=== PATIENT | male | born 1950 | race Caucasian/White ===

== ENCOUNTER 2021-01-10 23:07 | Inpatient (IN) ==
[2021-01-11 00:10] LABS: Basophils # 0.1 10*3/uL (0.0-0.2); Basophils % 0.5 % (0.0-0.8); Eosinophils # 0.2 10*3/uL (0.0-0.87); Hematocrit 42.2 VOL% (42.0-52.0); Hemoglobin 13.2 GM/DL (14.0-18.0); Immature Granulocytes % 0.5 %; Immature Granulocytes Absolute 0.05 #; Lymphocytes # 0.5 10*3/uL (1.4-4.0); Lymphocytes % 4.9 % (21.2-54.2); Mean Corpuscular HGB Conc 31.3 GM/DL (32-36); Mean Corpuscular Volume 89.4 FL (87-102); Mean Platelet Volume 10.8 FL (9.6-12.0); Monocytes % 7.3 % (1.7-12.7); Neutrophils % 84.8 % (38.7-73.9); Platelet Count 111 T/CUMM (130-400); Red Blood Count 4.72 MC/CUMM (3.8-5.5); Red Cell Distribution Width 15.1 % (9.3-17.3); White Blood Count 9.1 T/CUMM (4-12)
[2021-01-11 00:17] LABS: Albumin 2.9 G/DL (3.4-5.0); Bilirubin,Total 1.2 MG/DL (0.2-1.0); Calcium 8.2 MG/DL (8.5-10.1); Osmolality,Calculated 281.4 MOS/KG (273-304); Potassium 3.6 MMOL/L (3.5-5.1)
[2021-01-11] MEDS ORDERED: cefTRIAXone 1,000 MG in SODIUM CHLORIDE 0.9% 100 ML IV STA (00:17)
[2021-01-11] MEDS ORDERED: ONDANSETRON 4 MG/2 ML VIAL IV STA (00:17)
[2021-01-11] MEDS ORDERED: FUROSEMIDE 100 MG/10 ML VIAL IV STA (00:17)
[2021-01-11] MEDS ORDERED: methylPREDNISolone SOD SUC 125 MG/2 ML VIAL IV STA (00:17)
[2021-01-11] MEDS ORDERED: ALBUTEROL NEB SOLN 5 MG/ML 20 ML/BOTTLE CONT NEB SCH (00:30)
[2021-01-11 00:52] LABS: INR 1.1; PT Patient Result 11.9 SECS (10.5-12.0)
[2021-01-11 01:29] LABS: Bacteria,Urine Many /HPF (Few); Bilirubin,Urine Negative (Negative); Blood, Urine Negative (Negative); Glucose,Urine (UA) Negative (Negative); Ketones,Urine Negative (Negative); Mucus,Urine Many /LPF (Occasional); Nitrite,Urine Positive (Negative); Protein,Urine 30 MG/DL; RBC,Urine 31 /HPF (0-4); Renal Epithelial Cells,Urine Occasional /HPF (<1); Urine Appearance Slightly Hazy (Clear); Urine Color Amber (Yellow)
[2021-01-11] MEDS ORDERED: ENOXAPARIN 100 MG/ML SYRINGE SUBCUT STA (01:30)
[2021-01-11] MEDS ORDERED: BICILLIN LA 1,200,000 UNIT/2 ML SYRINGE IM STA (01:40)
[2021-01-11] MEDS ORDERED: LEVOFLOXACIN INJ 750 MG/150 ML PREMIX IV STA (01:41)
[2021-01-11] MEDS ORDERED: ENOXAPARIN 120 MG/0.8 ML SYRINGE SUBCUT ONE (02:06)
[2021-01-11] MEDS ORDERED: LACTULOSE 20 GM/30 ML UDCUP PO PRN (02:39)
[2021-01-11] MEDS ORDERED: ONDANSETRON 4 MG/2 ML VIAL IV PRN (02:39)
[2021-01-11] MEDS ORDERED: ACETAMINOPHEN 325 MG TABLET PO PRN (02:39)
[2021-01-11 04:28] LABS: Basophils % 0.2 % (0.0-0.8); Eosinophils % 0.3 % (0.00-10.9); Hematocrit 44.1 VOL% (42.0-52.0); Hemoglobin 14.2 GM/DL (14.0-18.0); Immature Granulocytes % 0.4 %; Immature Granulocytes Absolute 0.04 #; Lymphocytes # 0.4 10*3/uL (1.4-4.0); Lymphocytes % 4.4 % (21.2-54.2); Mean Corpuscular HGB Conc 32.2 GM/DL (32-36); Mean Corpuscular Volume 88.9 FL (87-102); Mean Platelet Volume 10.8 FL (9.6-12.0); Monocytes % 2.3 % (1.7-12.7); Neutrophils % 92.4 % (38.7-73.9); Platelet Count 108 T/CUMM (130-400); Red Blood Count 4.96 MC/CUMM (3.8-5.5); Red Cell Distribution Width 15.2 % (9.3-17.3)
[2021-01-11 04:50] LABS: Lymphocytes 5 % (20-55); Platelet Estimate Decreased; Segmented Neutrophils 92 % (50-85); Total Cells Counted 100
[2021-01-11 04:53] LABS: Hypochromasia Slight; Microcytosis Slight
[2021-01-11 05:00] LABS: Albumin 3.2 G/DL (3.4-5.0); Bilirubin,Total 1.1 MG/DL (0.2-1.0); Calcium 8.3 MG/DL (8.5-10.1); Osmolality,Calculated 281.7 MOS/KG (273-304); Potassium 4.1 MMOL/L (3.5-5.1); Total Protein 6.7 G/DL (6.4-8.2)
[2021-01-11] MEDS: ALBUTEROL 2.5 MG/3 ML NEB RESP TX SCH ×3 (07:20→19:00)
[2021-01-11] MEDS: CLOPIDOGREL 75 MG TABLET PO SCH (08:00)
[2021-01-11] MEDS: LOSARTAN 25 MG TABLET PO SCH (08:01)
[2021-01-11] MEDS: PANTOPRAZOLE 40 MG TABLET PO SCH (08:01)
[2021-01-11] MEDS: ASCORBIC ACID 500 MG TABLET PO SCH (08:01)
[2021-01-11] MEDS: ATORVASTATIN 10 MG TABLET PO SCH (08:01)
[2021-01-11] MEDS: ASPIRIN EC 81 MG TABLET PO SCH (08:01)
[2021-01-11] MEDS: carvediloL 3.125 MG TABLET PO SCH ×2 (08:04→20:26)
[2021-01-11] MEDS: FUROSEMIDE 40 MG TABLET PO SCH ×2 (08:04→20:27)
[2021-01-11] MEDS: cefTRIAXone 1,000 MG in SODIUM CHLORIDE 0.9% 100 ML IV SCH (20:27)
[2021-01-11] MEDS: ENOXAPARIN 40 MG/0.4 ML SYRINGE SUBCUT SCH (20:27)
[2021-01-11] MEDS: TRIAMCINOLONE 0.025% CREAM 15 GM TUBE TOP SCH (20:27)
[2021-01-11] MEDS: TAMSULOSIN 0.4 MG CAPSULE PO SCH (20:27)
[2021-01-12] MEDS: ALBUTEROL 2.5 MG/3 ML NEB RESP TX SCH ×4 (00:22→19:18)
[2021-01-12 01:42] LABS: Albumin 2.7 G/DL (3.4-5.0); Bilirubin,Total 0.5 MG/DL (0.2-1.0); Calcium 8.6 MG/DL (8.5-10.1); Osmolality,Calculated 293.7 MOS/KG (273-304); Potassium 4.3 MMOL/L (3.5-5.1); Total Protein 6.6 G/DL (6.4-8.2)
[2021-01-12] MEDS ORDERED: BICILLIN CR 1,200,000 UNIT/2 ML SYRINGE IM STA (07:54)
[2021-01-12] MEDS: TRIAMCINOLONE 0.025% CREAM 15 GM TUBE TOP SCH ×2 (08:16→21:17)
[2021-01-12] MEDS: LOSARTAN 25 MG TABLET PO SCH (08:16)
[2021-01-12] MEDS: ASCORBIC ACID 500 MG TABLET PO SCH (08:16)
[2021-01-12] MEDS: carvediloL 3.125 MG TABLET PO SCH ×2 (08:16→21:17)
[2021-01-12] MEDS: FUROSEMIDE 40 MG TABLET PO SCH ×2 (08:16→21:17)
[2021-01-12] MEDS: CLOPIDOGREL 75 MG TABLET PO SCH (08:16)
[2021-01-12] MEDS: PANTOPRAZOLE 40 MG TABLET PO SCH (08:16)
[2021-01-12] MEDS: TAMSULOSIN 0.4 MG CAPSULE PO SCH ×2 (08:16→21:17)
[2021-01-12] MEDS: ATORVASTATIN 10 MG TABLET PO SCH (08:16)
[2021-01-12] MEDS: ASPIRIN EC 81 MG TABLET PO SCH (08:16)
[2021-01-12] MEDS: DOCUSATE SODIUM 100 MG CAPSULE PO SCH ×2 (15:15→21:12)
[2021-01-12] MEDS: ENOXAPARIN 40 MG/0.4 ML SYRINGE SUBCUT SCH (21:20)
[2021-01-12] MEDS: BUDESONIDE/FORMOTEROL 160-4.5 INHALER 6 GM INH SCH (21:20)
[2021-01-12] MEDS: cefTRIAXone 1,000 MG in SODIUM CHLORIDE 0.9% 100 ML IV SCH (21:30)
[2021-01-13] MEDS: ALBUTEROL 2.5 MG/3 ML NEB RESP TX SCH ×4 (00:50→19:11)
[2021-01-13] MEDS: DOCUSATE SODIUM 100 MG CAPSULE PO SCH ×2 (08:35→10:20)
[2021-01-13] MEDS: TAMSULOSIN 0.4 MG CAPSULE PO SCH ×2 (08:35→22:20)
[2021-01-13] MEDS: LOSARTAN 25 MG TABLET PO SCH (08:35)
[2021-01-13] MEDS: FUROSEMIDE 40 MG TABLET PO SCH ×2 (08:35→22:20)
[2021-01-13] MEDS: ASPIRIN EC 81 MG TABLET PO SCH (08:35)
[2021-01-13] MEDS: carvediloL 3.125 MG TABLET PO SCH ×2 (08:35→22:20)
[2021-01-13] MEDS: PANTOPRAZOLE 40 MG TABLET PO SCH (08:35)
[2021-01-13] MEDS: ATORVASTATIN 10 MG TABLET PO SCH (08:35)
[2021-01-13] MEDS: ASCORBIC ACID 500 MG TABLET PO SCH (08:35)
[2021-01-13] MEDS: CLOPIDOGREL 75 MG TABLET PO SCH (08:35)
[2021-01-13] MEDS: TRIAMCINOLONE 0.025% CREAM 15 GM TUBE TOP SCH (08:40)
[2021-01-13] MEDS: BUDESONIDE/FORMOTEROL 160-4.5 INHALER 6 GM INH SCH ×2 (09:50→22:20)
[2021-01-13] MEDS: ERTAPENEM 1,000 MG in SODIUM CHLORIDE 0.9% 100 ML IV SCH (13:30)
[2021-01-14] MEDS: ENOXAPARIN 40 MG/0.4 ML SYRINGE SUBCUT SCH (00:06)
[2021-01-14] MEDS: TRIAMCINOLONE 0.025% CREAM 15 GM TUBE TOP SCH ×2 (00:06→09:46)
[2021-01-14] MEDS: ALBUTEROL 2.5 MG/3 ML NEB RESP TX SCH ×2 (01:23→08:07)
[2021-01-14 06:49] LABS: Basophils % 0.7 % (0.0-0.8); Eosinophils # 0.3 10*3/uL (0.0-0.87); Eosinophils % 5.1 % (0.00-10.9); Hematocrit 45.7 VOL% (42.0-52.0); Hemoglobin 14.3 GM/DL (14.0-18.0); Immature Granulocytes % 0.5 %; Immature Granulocytes Absolute 0.03 #; Lymphocytes # 1.1 10*3/uL (1.4-4.0); Lymphocytes % 17.8 % (21.2-54.2); Mean Corpuscular HGB Conc 31.3 GM/DL (32-36); Mean Corpuscular Volume 91.6 FL (87-102); Mean Platelet Volume 10.7 FL (9.6-12.0); Monocytes % 9.6 % (1.7-12.7); Neutrophils % 66.3 % (38.7-73.9); Platelet Count 125 T/CUMM (130-400); Red Blood Count 4.99 MC/CUMM (3.8-5.5); Red Cell Distribution Width 14.6 % (9.3-17.3)
[2021-01-14 06:55] LABS: White Blood Count 6.1 T/CUMM (4-12)
[2021-01-14 06:57] LABS: Albumin 2.8 G/DL (3.4-5.0); Bilirubin,Total 0.8 MG/DL (0.2-1.0); Calcium 8.5 MG/DL (8.5-10.1); Osmolality,Calculated 281.5 MOS/KG (273-304); Potassium 3.8 MMOL/L (3.5-5.1); Total Protein 6.7 G/DL (6.4-8.2)
[2021-01-14] MEDS ORDERED: FLUTICASONE 50 MCG NASAL SPRAY 16 GM BOTTLE BOTH NARES SCH (09:00)
[2021-01-14] MEDS: ASCORBIC ACID 500 MG TABLET PO SCH (09:34)
[2021-01-14] MEDS: TAMSULOSIN 0.4 MG CAPSULE PO SCH (09:34)
[2021-01-14] MEDS: ASPIRIN EC 81 MG TABLET PO SCH (09:34)
[2021-01-14] MEDS: carvediloL 3.125 MG TABLET PO SCH (09:34)
[2021-01-14] MEDS: ATORVASTATIN 10 MG TABLET PO SCH (09:35)
[2021-01-14] MEDS: CLOPIDOGREL 75 MG TABLET PO SCH (09:35)
[2021-01-14] MEDS: BUDESONIDE/FORMOTEROL 160-4.5 INHALER 6 GM INH SCH (09:35)
[2021-01-14] MEDS: FUROSEMIDE 40 MG TABLET PO SCH (09:35)
[2021-01-14] MEDS: LOSARTAN 25 MG TABLET PO SCH (09:35)
[2021-01-14] MEDS: PANTOPRAZOLE 40 MG TABLET PO SCH (09:46)
[2021-01-14] MEDS: DOCUSATE SODIUM 100 MG CAPSULE PO SCH (09:46)
[2021-01-14] MEDS: ERTAPENEM 1,000 MG in SODIUM CHLORIDE 0.9% 100 ML IV SCH (11:40)
[2021-01-14 12:28] VITALS: BP 114/71
== END 2021-01-14 12:56 | disposition home or self-care (01) | DRG 872 ==
LOC: EDBD → EDUNIT# → N.ED 23:07 → N.EDINP 01-11 02:39 → N.ICU 01-11 03:14 → N.TELEN 01-13 16:30
PROVIDERS: ADMIT Internal Medicine; ATTEND Internal Medicine

== ENCOUNTER 2022-02-13 15:36 | Observation (INO) ==
[2022-02-13] MEDS ORDERED: NITROGLYCERIN 2% OINT 1 INCH/GM PACK TOP STA (17:12)
[2022-02-13] MEDS ORDERED: MORPHINE 2 MG/1 ML SYRINGE IV STA (17:12)
[2022-02-13] MEDS ORDERED: ONDANSETRON 4 MG/2 ML VIAL IV ONE (17:12)
[2022-02-13] MEDS ORDERED: ASPIRIN 325 MG TABLET PO STA (17:12)
[2022-02-13 17:25] LABS: Basophils # 0.1 10*3/uL (0.0-0.2); Eosinophils # 0.4 10*3/uL (0.0-0.87); Hematocrit 43.8 VOL% (42.0-52.0); Hemoglobin 13.3 GM/DL (14.0-18.0); Immature Granulocytes % 0.3 %; Immature Granulocytes Absolute 0.02 #; Lymphocytes # 1.2 10*3/uL (1.4-4.0); Lymphocytes % 20.7 % (21.2-54.2); Mean Corpuscular HGB Conc 30.4 GM/DL (32-36); Mean Corpuscular Volume 91.8 FL (87-102); Monocytes # 0.4 10*3/uL (0.11-0.8); Monocytes % 6.2 % (1.7-12.7); Neutrophils % 65.8 % (38.7-73.9); Platelet Count 108 T/CUMM (130-400); Red Blood Count 4.77 MC/CUMM (3.8-5.5); Red Cell Distribution Width 15.4 % (9.3-17.3); White Blood Count 5.8 T/CUMM (4-12)
[2022-02-13 17:49] LABS: Albumin 3.3 G/DL (3.4-5.0); Bilirubin,Total 0.9 MG/DL (0.20-1.00); Calcium 8.9 MG/DL (8.5-10.1); Osmolality,Calculated 282.3 MOS/KG (273-304); Potassium 3.6 MMOL/L (3.5-5.1); Total Protein 6.8 G/DL (6.4-8.2)
[2022-02-13 18:48] LABS: INR 0.9; PT Patient Result 10.5 SECS (10.5-12.0)
[2022-02-13] MEDS ORDERED: MAGNESIUM SULF RIDER 2 GM/50 ML PREMIX IV PRN (20:30)
[2022-02-13] MEDS ORDERED: MORPHINE 2 MG/1 ML SYRINGE IV PRN (20:30)
[2022-02-13] MEDS ORDERED: MAGNESIUM SULF RIDER 4 GM/100 ML PREMIX IV PRN (20:30)
[2022-02-13] MEDS ORDERED: ONDANSETRON 4 MG/2 ML VIAL IV PRN (20:30)
[2022-02-13] MEDS ORDERED: ATORVASTATIN 80 MG TABLET PO SCH (21:00)
[2022-02-13] MEDS ORDERED: INSULIN REGULAR 100 UNIT/ML SUBCUT SCH (21:00)
[2022-02-13] MEDS: carvediloL 3.125 MG TABLET PO SCH (22:40)
[2022-02-13] MEDS: MONTELUKAST 10 MG TABLET PO SCH (22:40)
[2022-02-13] MEDS: THIAMINE 100 MG TABLET PO SCH (22:40)
[2022-02-13] MEDS: FOLIC ACID 1 MG TABLET PO SCH (22:40)
[2022-02-13] MEDS: TAMSULOSIN 0.4 MG CAPSULE PO SCH (22:40)
[2022-02-13] MEDS: ENOXAPARIN 40 MG/0.4 ML SYRINGE SUBCUT SCH (22:41)
[2022-02-14] MEDS: ALBUTEROL/IPRATROPIUM 3 ML NEB RESP TX PRN ×2 (04:26→12:30)
[2022-02-14 04:49] LABS: Risk Ratio 1.95; VLDL Cholesterol 16.8 MG/DL
[2022-02-14] MEDS ORDERED: FUROSEMIDE 40 MG/4 ML VIAL IV SCH (09:00)
[2022-02-14] MEDS: carvediloL 3.125 MG TABLET PO SCH ×2 (09:10→16:19)
[2022-02-14] MEDS: TAMSULOSIN 0.4 MG CAPSULE PO SCH ×2 (09:10→20:51)
[2022-02-14] MEDS: ASPIRIN EC 81 MG TABLET PO SCH (09:10)
[2022-02-14] MEDS: PANTOPRAZOLE 40 MG TABLET PO SCH (09:10)
[2022-02-14] MEDS: THIAMINE 100 MG TABLET PO SCH ×2 (09:11→20:51)
[2022-02-14] MEDS: allopurinoL 100 MG TABLET PO SCH (09:11)
[2022-02-14] MEDS: POTASSIUM CHLORIDE 20 MEQ TABLET PO SCH (09:11)
[2022-02-14] MEDS ORDERED: MELOXICAM 7.5 MG TABLET PO PRN (11:18)
[2022-02-14] MEDS ORDERED: NITROGLYCERIN SL 0.4 MG TABLET SL PRN (11:18)
[2022-02-14] MEDS ORDERED: ALBUTEROL 2.5 MG/3 ML NEB RESP TX PRN (11:40)
[2022-02-14] MEDS ORDERED: diphenhydrAMINE CAP 50 MG CAPSULE PO ONE (13:24)
[2022-02-14] MEDS ORDERED: DIAZEPAM 5 MG TABLET PO ONE (13:24)
[2022-02-14] MEDS ORDERED: HEPARIN/NACL 0.9% 2 UNITS/ML 2,000 UNIT/1,000 ML BAG IV ONE (13:33)
[2022-02-14] MEDS ORDERED: NITROGLYCERIN DRIP 50 MG/250 ML BOTTLE IV ONE (14:10)
[2022-02-14] MEDS ORDERED: MIDAZOLAM 2 MG/2 ML VIAL ONE (14:10)
[2022-02-14] MEDS ORDERED: HYDROmorphone 1 MG/1 ML SYRINGE ONE (14:10)
[2022-02-14] MEDS ORDERED: VERAPAMIL 5 MG/2 ML VIAL ONE (14:10)
[2022-02-14] MEDS ORDERED: ENOXAPARIN 60 MG/0.6 ML SYRINGE ONE (14:29)
[2022-02-14] MEDS ORDERED: BIVALIRUDIN 250 MG VIAL IV ONE (14:44)
[2022-02-14] MEDS ORDERED: CLOPIDOGREL 300 MG TABLET ONE (14:56)
[2022-02-14] MEDS: FUROSEMIDE 40 MG TABLET PO SCH ×2 (16:19→20:51)
[2022-02-14] MEDS: FOLIC ACID 1 MG TABLET PO SCH (20:50)
[2022-02-14] MEDS: POTASSIUM CHLORIDE 10 MEQ TABLET PO SCH (20:50)
[2022-02-14] MEDS: MONTELUKAST 10 MG TABLET PO SCH (20:51)
[2022-02-14] MEDS: ENOXAPARIN 40 MG/0.4 ML SYRINGE SUBCUT SCH (20:51)
[2022-02-14] MEDS ORDERED: VALSARTAN 80 MG TABLET PO SCH (21:00)
[2022-02-14] MEDS ORDERED: CYANOCOBALAMIN 500 MCG TABLET PO SCH (21:00)
[2022-02-14] MEDS ORDERED: ZINC GLUCONATE 50 MG TABLET PO SCH (21:00)
[2022-02-14] MEDS ORDERED: CETIRIZINE 10 MG TABLET PO SCH (21:00)
[2022-02-14] MEDS: BUDESONIDE/FORMOTEROL 160-4.5 INHALER 6 GM INH SCH (21:02)
[2022-02-15 05:16] LABS: Basophils # 0.1 10*3/uL (0.0-0.2); Basophils % 0.7 % (0.0-0.8); Eosinophils # 0.5 10*3/uL (0.0-0.87); Eosinophils % 6.5 % (0.00-10.9); Hematocrit 41.5 VOL% (42.0-52.0); Hemoglobin 12.6 GM/DL (14.0-18.0); Immature Granulocytes % 0.3 %; Immature Granulocytes Absolute 0.02 #; Lymphocytes # 1.2 10*3/uL (1.4-4.0); Mean Corpuscular HGB Conc 30.4 GM/DL (32-36); Mean Corpuscular Volume 93.9 FL (87-102); Mean Platelet Volume 11.8 FL (9.6-12.0); Monocytes # 0.6 10*3/uL (0.11-0.8); Monocytes % 8.7 % (1.7-12.7); Neutrophils % 66.8 % (38.7-73.9); Platelet Count 109 T/CUMM (130-400); Red Blood Count 4.42 MC/CUMM (3.8-5.5); Red Cell Distribution Width 15.3 % (9.3-17.3); White Blood Count 7.1 T/CUMM (4-12)
[2022-02-15 05:25] LABS: Calcium 8.5 MG/DL (8.5-10.1); Osmolality,Calculated 275.8 MOS/KG (273-304); Potassium 4.6 MMOL/L (3.5-5.1)
[2022-02-15] MEDS ORDERED: AZELASTINE NASAL 137 MCG/SPRAY 30 ML BOTTLE BOTH NARES SCH (09:00)
[2022-02-15] MEDS ORDERED: ASPIRIN EC 81 MG TABLET PO SCH (09:00)
[2022-02-15] MEDS ORDERED: ASCORBIC ACID 500 MG TABLET PO SCH (09:00)
[2022-02-15] MEDS ORDERED: PANTOPRAZOLE 40 MG TABLET PO SCH (09:00)
[2022-02-15] MEDS ORDERED: CLOPIDOGREL 75 MG TABLET PO SCH ×2 (09:00)
[2022-02-15] MEDS ORDERED: ATORVASTATIN 10 MG TABLET PO SCH (09:00)
[2022-02-15] MEDS ORDERED: FLUTICASONE 50 MCG NASAL SPRAY 16 GM BOTTLE BOTH NARES SCH (09:00)
[2022-02-15] MEDS ORDERED: CHOLECALCIFEROL 1,000 UNIT TABLET PO SCH (09:00)
[2022-02-15] MEDS: ASPIRIN EC 81 MG TABLET PO SCH (09:55)
[2022-02-15] MEDS: POTASSIUM CHLORIDE 10 MEQ TABLET PO SCH (09:55)
[2022-02-15] MEDS: TAMSULOSIN 0.4 MG CAPSULE PO SCH (09:55)
[2022-02-15] MEDS: POTASSIUM CHLORIDE 20 MEQ TABLET PO SCH (09:56)
[2022-02-15] MEDS: allopurinoL 100 MG TABLET PO SCH (09:56)
[2022-02-15] MEDS: FUROSEMIDE 40 MG TABLET PO SCH (09:56)
[2022-02-15] MEDS: carvediloL 3.125 MG TABLET PO SCH (09:56)
[2022-02-15] MEDS: PANTOPRAZOLE 40 MG TABLET PO SCH (09:56)
[2022-02-15] MEDS: THIAMINE 100 MG TABLET PO SCH (09:56)
[2022-02-15] MEDS: BUDESONIDE/FORMOTEROL 160-4.5 INHALER 6 GM INH SCH (09:59)
[2022-02-15 12:03] VITALS: BP 108/66
== END 2022-02-15 14:12 | disposition home or self-care (01) ==
LOC: N.ED 15:36 → N.EDINP 15:36 → N.TELEN 21:06
PROVIDERS: ADMIT Internal Medicine; ATTEND Internal Medicine
PROC: CLCCHCL (ICD-10-PCS; 2022-02-14 14:15)